=== PATIENT | female | born 1960 | race Caucasian/White ===

== ENCOUNTER → 2016-06-18 | Outpatient (CLI) | payer BC ==
--- NOTE | 2016-06-18 09:00 | KCIC ---
PROCEDURE CT study of the maxillofacial bones without contrast (CT study of the paranasal sinuses) HISTORY Chronic sinusitis and congestion and headaches. TECHNIQUE Noncontrast helical CT scanning of the paranasal sinuses was performed. Multiplanar 2D reconstructions were generated. One or more of the following individualized dose reduction techniques were utilized for this study: 1. Automated exposure control 2. Adjustment of the mA and/or kV according to patient size 3. Use of iterative reconstruction technique COMPARISON None available. FINDINGS The maxillary and ethmoid and sphenoid and frontal sinuses are clear. No air-fluid levels are evident. The infundibular canal of the ostiomeatal complex is clear on both sides. There is moderate mucosal thickening of the inferior turbinates and mild mucosal thickening of the middle turbinates bilaterally. No soft tissue thickening of the middle and inferior meatus is seen. No nasal passageway soft tissue mass or polyp is evident. No abnormal thickening of the adenoids is seen. There is mild S-shaped nasal septal deviation. The middle ear cavities and mastoid sinuses are clear. No osteolytic process is seen. IMPRESSION No sinusitis. Electronically signed by: Lio Livingston MD (Jun 18, 2016 08:58:46)
== END | disposition home or self-care (01) ==
LOC: KCIC CT 07:54
PROVIDERS: ATTEND Otolaryngology
DX: J32.9 Chronic sinusitis, unspecified (principal)
CPT/HCPCS: 70486